=== PATIENT | male | born 1975 | race Two or more races ===

== ENCOUNTER 2018-08-12 02:25 | Emergency (ER) | payer SELFPAY ==
[~2018-08-12] VITALS: Ht 177.8 cm; Wt 72.6 kg
[2018-08-12] MEDS ORDERED: HYDROcodone/APAP 10/325 1 TAB TABLET PO ONE (03:00)
[2018-08-12] MEDS ORDERED: TETRACAINE 0.5% OPHTH SOLUTION 4ML BOTTLE. OU ONE (03:00)
[2018-08-12] MEDS ORDERED: ATRO2DRO3 OU (03:15)
[2018-08-12] MEDS ORDERED: OXYC1TAB8 PO (03:15)
--- NOTE | 2018-08-12 03:15 | PHYS DOC ---
Past Medical History Past Medical History: No Pertinent History Alcohol Use: None Drug Use: None Adult General Chief Complaint Chief Complaint: EYE PROBLEMS HPI HPI Patient is a 43-year-old male who presents with complaint of bilateral eye pain after welding yesterday without using eye protection. Patient states that he feels like he has sand in his eyes and rates the pain at an 8 out of 10. He states that there are no alleviating factors and states that bright lights worsen his pain. He denies any foreign body and states that pain did not start up until several hours after the welding. He denies any visual changes. Review of Systems Review of Systems Constitutional: Denies fever or chills [] Eyes: Denies change in visual acuity. Complains of bilateral eye pain and redness [] Respiratory: Denies cough or shortness of breath [] Cardiovascular: No additional information not addressed in HPI [] Neurologic: Denies headache, focal weakness or sensory changes [] Current Medications Current Medications Current Medications Medications (Trade) Dose Ordered Sig/Edgardo Start Time Stop Time Status Last Admin Dose Admin Acetaminophen/ Hydrocodone Bitart (Lortab 10/325) 1 tab 1X ONCE 08/12/18 03:00 08/12/18 03:01 DC 08/12/18 03:02 1 TAB Tetracaine HCl (Tetracaine) 2 drop 1X ONCE 08/12/18 03:00 08/12/18 03:01 DC 08/12/18 03:03 2 DROP Allergies Allergies Allergies Coded Allergies Type Severity Reaction Last Updated Verified No Known Drug Allergies 08/12/18 No Physical Exam Physical Exam Constitutional: Well developed, well nourished, no acute distress, non-toxic appearance. [] HENT: Normocephalic, atraumatic, bilateral external ears normal, oropharynx moist, no oral exudates, nose normal. [] Eyes: PERRLA, EOMI. there is chemosis noted bilateral eyes. No foreign body detected. [] Neck: Normal range of motion, no tenderness, supple, no stridor. [] Cardiovascular: Regular rate and rhythm [] Lungs & Thorax: Bilateral breath sounds clear to auscultation [] Current Patient Data Vital Signs Vital Signs Date Time Temp Pulse Resp B/P (MAP) Pulse Ox O2 Delivery O2 Flow Rate FiO2 08/12/18 03:02 18 08/12/18 02:45 97.7 85 164/100 (121) 100 Room Air 97.0 97.7 EKG EKG [] Radiology/Procedures Radiology/Procedures [] Course & Med Decision Making Course & Med Decision Making Pertinent Labs and Imaging studies reviewed. (See chart for details) [] Dragon Disclaimer Dragon Disclaimer This electronic medical record was generated, in whole or in part, using a voice recognition dictation system. Departure Departure Impression: Primary Impression: Photokeratitis of both eyes Disposition: HOME, SELF-CARE Condition: STABLE Referrals: Mauro CONNELLY MD Patient Instructions: Eye - Ultraviolet Keratitis Scripts Atropine Sulfate (Atropine Sulfate) 2 Ml Drops 1 DROP OU BID for 3 Days, #2 ML Prov: MARY KAY KENNEDY Jr. DO 08/12/18 Oxycodone Hcl/Acetaminophen (OXYCODON-ACETAMINOPHEN 7.5-325) 1 Each Tablet 1 EACH PO PRN Q6HRS PRN for PAIN, #15 TAB 0 Refills Prov: MARY KAY KENNEDY Jr. DO 08/12/18 MARY KAY KENNEDY Jr. DO Aug 12, 2018 03:15
[2018-08-12 04:12] VITALS: BP 161/94
== END 2018-08-12 04:00 | disposition home or self-care (01) ==
LOC: ER 02:25
DX: H16.133 Photokeratitis, bilateral (principal)
CPT/HCPCS: 99283